=== PATIENT | male | born 1995 | race Two or more races ===

== ENCOUNTER 2018-12-09 13:56 | Emergency (ER) | payer MEDICAID ==
[~2018-12-09] VITALS: Ht 170.2 cm; Wt 104.3 kg
[~2018-12-09 13:56] MED LIST: METH18TA5
[2018-12-09 14:55] VITALS: BP 138/79
[2018-12-09] MEDS ORDERED: KETOROLAC TROMETH 60MG/2ML VIAL IM ONE (15:30)
== END 2018-12-09 16:08 | disposition home or self-care (01) ==
LOC: ER 13:58
DX: R51 Headache (principal); Z79.899 Other long term (current) drug therapy
CPT/HCPCS: 96372; 99283; J1885

== ENCOUNTER 2020-08-10 07:16 | Emergency (ER) | payer MEDICAID, OTHER ==
[~2020-08-10] VITALS: Ht 170.2 cm; Wt 81.6 kg
[2020-08-10] MEDS ORDERED: ACETAMINOPHEN 500 MG TAB PO ONE (08:00)
[2020-08-10 08:34] VITALS: BP 155/92
== END 2020-08-10 08:40 | disposition home or self-care (01) ==
LOC: ER 07:16
DX: S80.12XA Contusion of left lower leg, initial encounter (principal); G44.319 Acute post-traumatic headache, not intractable; V43.52XA Car driver injured in collision with other type car in traffic accident, initial encounter; Y93.I9 Activity, other involving external motion; Y92.488 Other paved roadways as the place of occurrence of the external cause; Y99.8 Other external cause status
CPT/HCPCS: 70450